=== PATIENT | female | born 1945 | race Caucasian/White ===

== ENCOUNTER → 2017-03-11 | Outpatient (CLI) | payer MEDICARE, OTHER ==
[~2017-03-11] MED LIST: AMBIEN 10MG10 MG PO; ATIVAN; ATIVAN1 MG PO; AZITHROMYCIN250 MG PO; LORTAB 5/500 501 TAB PO; PERCOCET 5/321 UDTAB PO; PREVACID 15MG15 M1; PREVACID30 MG PO; PRILOSEC 20MG20 MG PO; TRAMADOL; ULTRAM50 MG PO
== END ==
LOC: MC.RAD 14:13
DX: Z12.31 Encounter for screening mammogram for malignant neoplasm of breast (principal)